=== PATIENT | female | born 1970 | race Caucasian/White ===

== ENCOUNTER → 2021-10-08 | Outpatient (CLI) | payer OTHER ==
[~2021-10-08] MED LIST: BENTYL 10MG CAP10 MG PO; CLONIDINE HCL0.1 MG PO; CYCLOBENZAPRINE10 MG PO; DOCUSATE SODIU100 MG PO; HYDROXYZINE PAM25 MG PO; IBU400 MG PO; LACTULOSE10 GM/15 M PO; LAMICTAL25 MG PO; LISINOPRIL20 MG PO; LOPERAMIDE2 MG PO; MELATONIN5 M2 PO; MUCUS RELIEF600 MG PO; NALOXONE HCL4 MG; SORE THROAT LO1 EAC1 MM; TAB-A-VITE TA400 MC1 PO; TRELEGY ELLIPT1 EACH INH; TUMS200 MG PO; TYLENOL EXTRA500 MG PO; ZOFRAN ODT 4 MG4 MG PO
== END ==
LOC: RAD 12:13
DX: Z11.1 Encounter for screening for respiratory tuberculosis (principal); R91.1 Solitary pulmonary nodule; J43.9 Emphysema, unspecified
CPT/HCPCS: 71046

== ENCOUNTER 2021-10-09 20:22 | Inpatient (IN) | payer OTHER ==
[~2021-10-09] VITALS: Ht 167.6 cm; Wt 54.4 kg
[2021-10-09 20:57] LABS: HEMOGLOBIN 13.1 gm/dl (12.3-15.3); RED BLOOD COUNT 4.82 M/UL (4.00-5.10); WHITE BLOOD COUNT 9.3 K/UL (4.5-11.0)
[2021-10-09 21:16] LABS: BUN/CREATININE RATIO 29 (0-10)
[2021-10-10 00:43] LABS: HEMOGLOBIN 13.2 gm/dl (12.3-15.3); RED BLOOD COUNT 4.71 M/UL (4.00-5.10)
[2021-10-10 00:49] LABS: WHITE BLOOD COUNT 16.4 K/UL (4.5-11.0)
[2021-10-10 01:54] LABS: BUN/CREATININE RATIO 31 (0-10)
[2021-10-10] MEDS ORDERED: TRELEGY ELLIPT1 EACH INH (10:11)
[2021-10-10] MEDS ORDERED: LISINOPRIL20 MG PO (10:12)
[2021-10-10] MEDS ORDERED: TYLENOL EXTRA500 MG PO (10:12)
[2021-10-10] MEDS ORDERED: LAMICTAL25 MG PO (10:12)
[2021-10-10] MEDS ORDERED: SORE THROAT LO1 EAC1 MM (10:13)
[2021-10-10] MEDS ORDERED: TUMS200 MG PO (10:14)
[2021-10-10] MEDS ORDERED: CLONIDINE HCL0.1 MG PO (10:14)
[2021-10-10] MEDS ORDERED: MUCUS RELIEF600 MG PO (10:15)
[2021-10-10] MEDS ORDERED: CYCLOBENZAPRINE10 MG PO (10:15)
[2021-10-10] MEDS ORDERED: BENTYL 10MG CAP10 MG PO (10:15)
[2021-10-10] MEDS ORDERED: DOCUSATE SODIU100 MG PO (10:15)
[2021-10-10] MEDS ORDERED: LACTULOSE10 GM/15 M PO (10:16)
[2021-10-10] MEDS ORDERED: HYDROXYZINE PAM25 MG PO (10:16)
[2021-10-10] MEDS ORDERED: IBU400 MG PO (10:16)
[2021-10-10] MEDS ORDERED: TAB-A-VITE TA400 MC1 PO (10:17)
[2021-10-10] MEDS ORDERED: MELATONIN5 M2 PO (10:17)
[2021-10-10] MEDS ORDERED: LOPERAMIDE2 MG PO (10:17)
[2021-10-10] MEDS ORDERED: ZOFRAN ODT 4 MG4 MG PO (10:18)
[2021-10-10] MEDS ORDERED: NALOXONE HCL4 MG (10:18)
[2021-10-11 04:32] LABS: HEMOGLOBIN 13.7 gm/dl (12.3-15.3); RED BLOOD COUNT 4.88 M/UL (4.00-5.10)
[2021-10-11 04:37] LABS: WHITE BLOOD COUNT 12.1 K/UL (4.5-11.0)
[2021-10-11 05:09] LABS: BUN/CREATININE RATIO 26 (0-10)
[2021-10-12 05:16] LABS: HEMOGLOBIN 12.1 gm/dl (12.3-15.3); WHITE BLOOD COUNT 10.5 K/UL (4.5-11.0)
[2021-10-12 05:20] LABS: RED BLOOD COUNT 4.37 M/UL (4.00-5.10)
[2021-10-12 05:39] LABS: BUN/CREATININE RATIO 16 (0-10)
[2021-10-13 04:12] LABS: BUN/CREATININE RATIO 16 (0-10)
[2021-10-13 08:14] LABS: HIV AB/P24 AG SCREEN Non Reactive (Non Reactive); RPR Non Reactive (Non Reactive)
[2021-10-13 11:14] LABS: HBSAG SCREEN Negative (Negative); HCV AB 0.1 (0.0-0.9); HEP A AB, IGM Negative (Negative); HEP B CORE AB, TOT Negative (Negative)
--- NOTE | 2021-10-14 12:08 | NUR ---
ATTEMPTED TO CALL ORTHO MD FOR PAIN MEDICATION PRESCRIPTION FOR DISCHARGE PER HOSPITALIST REQUEST. DR NELSON (STAINED GLASS PAINTER) STATES TO CALL DR BARR. NO ANSWER, TEXT MESSAGE SENT FOR CALL BACK. RETURN TEXT FROM DR BARR REQUESTS THAT OFFICE BE CALLED AND SPEAK WITH ТАТЬЯНА SO MEDS CAN BE SENT ELECTRONICALLY FROM OFFICE. ТАТЬЯНА [facility]NSURE [facility] STATES SHE WILL MESSAGE DR BARR FOR PRESCRIPTIONS.
[2021-10-14] MEDS ORDERED: ACETAMINOPHEN500 MG PO (16:37)
[2021-10-14] MEDS ORDERED: DILTIAZEM 24HR180 M1 PO (16:37)
[2021-10-14] MEDS ORDERED: HYDROXYZINE PAM25 MG PO (16:37)
[2021-10-14] MEDS ORDERED: NICOTINE PATCH1 EAC2 TOP (16:37)
[2021-10-14] MEDS ORDERED: IPRAT-ALBUT 0.5-3 ML NEB (16:37)
[2021-10-14] MEDS ORDERED: LOVENOX40 MG/0.4 SQ (16:40)
[2021-10-14] MEDS ORDERED: BROVANA15 MCG/2 M NEB (16:45)
[2021-10-14] MEDS ORDERED: NICODERM CQ1 EAC1 TD (16:54)
[2021-10-15 05:20] LABS: BUN/CREATININE RATIO 29 (0-10)
[2021-10-16 03:12] LABS: HEMOGLOBIN 11.8 gm/dl (12.3-15.3); RED BLOOD COUNT 4.22 M/UL (4.00-5.10); WHITE BLOOD COUNT 12.8 K/UL (4.5-11.0)
[2021-10-16 03:34] LABS: BUN/CREATININE RATIO 29 (0-10)
[2021-10-19 05:11] LABS: BUN/CREATININE RATIO 38 (0-10)
[2021-10-19] MEDS ORDERED: LEVOFLOXACIN750 MG PO (08:29)
[2021-10-22] MEDS ORDERED: BROVANA15 MCG/2 M NEB (11:58)
[2021-10-22] MEDS ORDERED: IPRAT-ALBUT 0.5-3 ML NEB (11:58)
--- NOTE | 2021-10-22 14:31 | NUR ---
10/22/21 1425 REPORT CALLED TO SAL AT AT [facility]
== END 2021-10-22 14:10 | DRG 521 ==
LOC: ER1 20:22 → CDU 22:11 → CCU 22:11
PROVIDERS: Internal Medicine; Internal Medicine Infectious Disease; Nurse Practitioner Family; Orthopaedic Surgery; Student in an Organized Health Care Education/Training Program; ADMIT Internal Medicine
PROC: 0SRR0JZ Replacement of Right Hip Joint, Femoral Surface with Synthetic Substitute, Open Approach (ICD-10-PCS; principal; 2021-10-11 08:14)
DX: S72.011A Unspecified intracapsular fracture of right femur, initial encounter for closed fracture (principal); J18.9 Pneumonia, unspecified organism; J44.0 Chronic obstructive pulmonary disease with (acute) lower respiratory infection; B15.9 Hepatitis A without hepatic coma; Z20.822 Contact with and (suspected) exposure to COVID-19; F17.210 Nicotine dependence, cigarettes, uncomplicated; F19.10 Other psychoactive substance abuse, uncomplicated; R53.81 Other malaise; F32.A Depression, unspecified; I10 Essential (primary) hypertension; R00.0 Tachycardia, unspecified; R74.01 Elevation of levels of liver transaminase levels; Z98.51 Tubal ligation status; Z90.49 Acquired absence of other specified parts of digestive tract; Z80.9 Family history of malignant neoplasm, unspecified; Z59.00 Homelessness unspecified; F41.9 Anxiety disorder, unspecified
CPT/HCPCS: 36415; 71045; 72100; 72170; 73502; 73552; 76705; 80048; 80053; 83735; 85025; 85027; 86592; 86704; 86706; 86708; 86709; 86803; 86850; 86900; 86901; 87070; 87205; 87340; 87389; 94640; 94664; 94760; 96374; 96375; 96376; 97110-GP-CQ; 97116; 97116-GP-CQ; 97161; 97165; 97530; 97530-GP-CQ; 97535; 99285; C1713; C1776; J0456; J0690; J0696; J1100; J1170; J1650; J2001; J2250; J2270; J2405; J2704; J3010; J7030; U0002